=== PATIENT | male | born 1970 | race Caucasian/White ===

== ENCOUNTER 2019-04-24 14:15 | Inpatient (IN) | payer SELFPAY | END 2019-04-29 14:38 | disposition home or self-care (01) | LOC: FER 14:15 → J7W 21:11 ==

== ENCOUNTER 2019-06-01 18:07 | Emergency (ER) | payer SELFPAY ==
[2019-06-01] MEDS ORDERED: SODIUM CHLORIDE 1,000 ML IV STA (18:27)
[2019-06-01 18:29] VITALS: BP 112/71; PULSE 79; TEMP 98.3; BMI 26.6
--- NOTE | 2019-06-01 18:32 | PDOC ---
History of Present Illness - General Chief Complaint: Pain Stated Complaint: MID TO LEFT LOWER QUADRANT PAIN Time Seen by Provider: 06/01/19 18:14 History Source: Patient Exam Limitations: No Limitations - History of Present Illness Travel History: No Initial Comments: 06/01/19 18:27 48 y/o male with hx of kidney stone and recent diverticulitis with abscess presents to ER with abdominal pain and radiation to left testicle. No back pain , dysuria or hematuria noted. Pain started last night. never followed up with Surgeon, but states needs colonoscopy. No fever or chills. No N/V/d/C. Pain still present. No fall or trauma to the area. Timing/Duration: reports: constant, getting worse Quality: reports: moderate Abdominal Pain Onset Location: reports: suprapubic Pain Radiation: reports: groin. denies: no radiation Past History - Past Medical History Allergies/Adverse Reactions: Allergies Allergy/AdvReac Type Severity Reaction Status Date / Time oxycodone Allergy Unknown Nausea Verified 06/01/19 18:09 Home Medications: Ambulatory Orders NK [No Known Home Medication] 06/01/19 COPD: No Kidney Stones: Yes (SELF REPORTED) Psychiatric Problems: Yes (ANXIETY) - Surgical History Appendectomy: Yes (AGE 14) - Suicide/Smoking/Psychosocial Hx Smoking History: Never smoked Hx Alcohol Use: No Drug/Substance Use Hx: Yes (MARIJUANA DAILY, OCCASIONAL COCAINE) Substance Use Type: Marijuana Review of Systems - Review of Systems Able to Perform ROS?: Yes Is the patient limited O[place]i proficient: No Constitutional: No: Chills, Fever Respiratory: No: Cough, Shortness of Breath ABD/GI: No: Diarrhea, Nausea, Vomiting : No: Dysuria, Flank Pain Musculoskeletal: No: Back Pain All Other Systems: Reviewed and Negative *Physical Exam - Physical Exam General Appearance: Yes: Nourished, Appropriately Dressed. No: Apparent Distress HEENT: positive: EOMI, SPENCER, Normal ENT Inspection, Normal Voice, Pharynx Normal Neck: positive: Trachea midline, Normal Thyroid, Supple. negative: Tender, Rigid Respiratory/Chest: positive: Lungs Clear, Normal Breath Sounds. negative: Chest Tender, Respiratory Distress Cardiovascular: positive: Regular Rhythm, Regular Rate, S1, S2. negative: Edema , JVD, Murmur Vascular Pulses: Femoral (R): 4+, Femoral (L): 4+, Carotid (R): 4+, Carotid (L) : 4+, Dorsalis-Pedis (R): 4+, Doralis-Pedis (L): 4+ Gastrointestinal/Abdominal: positive: Normal Bowel Sounds, Tender (mild tenderness to suprapubic area and LLQ, no RLQ, RUQ or LUQ tenderness noted), Flat, Soft. negative: Organomegaly, Pulsatile Mass Lymphatic: negative: Adenopathy, Tenderness, Other Musculoskeletal: positive: Normal Inspection. negative: CVA Tenderness, CVA Tenderness (L) Extremity: positive: Normal Capillary Refill, Normal Inspection, Normal Range of Motion. negative: Tender Integumentary: positive: Normal Color, Dry, Warm Neurologic: positive: human resources technician II-XII NML intact, Fully Oriented, Alert, Normal Mood/ Affect, Normal Response, Motor Strength 5/5 Progress Note - Progress Note Progress Note: Patient with hx of kidney stone and diverticulitis IVF and labs pending. Will need CT abdomen UA negative for blood At 1900, case endorsed to Dr. Taylor. *DC/Admit/Observation/Transfer Diagnosis at time of Disposition: Abdominal pain Qualifiers: Abdominal location: lower abdomen, unspecified Qualified Code(s): R10.30 - Lower abdominal pain, unspecified - Discharge Dispostion Condition at time of disposition: Stable - Referrals - Patient Instructions - Post Discharge Activity
[2019-06-01 18:59] LABS: BASO % 0.4 % (0-2.0); EOS % 0.8 % (0-4.5); HEMATOCRIT 36.8 % (35.4-49); HEMOGLOBIN 12.6 GM/dl (11.7-16.9); LYMPH % 25.1 % (8-40); MCH 31.1 pg (25.7-33.7); MCHC 34.2 g/dl (32.0-35.9); MEAN CELL VOLUME 90.9 fl (80-96); MEAN PLT VOLUME 7.7 fl (7.5-11.1); MONO % 7.5 % (3.8-10.2); NEUT % 66.2 % (42.8-82.8); PLATELET COUNT 261 K/MM3 (134-434); RBC 4.05 M/mm3 (4.00-5.60); RDW 12.4 % (11.9-15.9); WHITE BLOOD COUNT 8.6 K/mm3 (4.0-10.8)
[2019-06-01 19:11] LABS: BILIRUBIN,TOTAL 0.3 mg/dl (0.2-1); CALCIUM 8.4 mg/dl (8.5-10); CREATININE 1.1 mg/dl (0.55-1.3); POTASSIUM 3.7 mmol/L (3.5-5.1); TOT PROT 6.9 g/dl (6.4-8.2)
--- NOTE | 2019-06-01 19:15 | PDOC ---
*Physical Exam - Vital Signs Last Vital Signs Temp Pulse Resp BP Pulse Ox 98.3 F 79 16 112/71 99 06/01/19 18:09 06/01/19 18:09 06/01/19 18:09 06/01/19 18:09 06/01/19 18:09 ED Treatment Course - LABORATORY CBC & Chemistry Diagram: 06/01/19 18:40 06/01/19 18:40 - ADDITIONAL ORDERS Additional order review: Laboratory Results 06/01/19 06/01/19 18:40 18:35 Sodium 139 Potassium 3.7 Chloride 102 Carbon Dioxide 29 Anion Gap 8 BUN 18.0 Creatinine 1.1 Est GFR (CKD-EPI)AfAm 92.81 Est GFR (CKD-EPI)NonAf 80.08 Random Glucose 100 Calcium 8.4 L Total Bilirubin 0.3 AST 15 ALT 14 Alkaline Phosphatase 51 Total Protein 6.9 Albumin 4.0 Urine Color Yellow Urine Appearance Clear Urine pH 7.0 D Urine Protein Negative Urine Glucose (UA) Negative Urine Ketones Negative Urine Blood Negative Urine Nitrite Negative Urine Bilirubin Negative Urine Urobilinogen 0.2 Ur Leukocyte Esterase Negative 06/01/19 18:40 RBC 4.05 MCV 90.9 MCHC 34.2 RDW 12.4 MPV 7.7 Neutrophils % 66.2 Lymphocytes % 25.1 D Monocytes % 7.5 Eosinophils % 0.8 Basophils % 0.4 D Progress Note - Progress Note Progress Note: Care of this patient received from Dr. Mcnulty. Abdominal/pelvic CT with IV contrast performed. Patient states that he feels more comfortable after IV hydration. Preliminary interpretation of CT by Imaging injection molding process technician: Moderate acute diverticulitis of the proximal sigmoid colon. No evidence for perforation or abscess at this time. Trace pelvic fluid. No evidence for small bowel obstruction or free air. No ureteral calculi or hydronephrosis. Other than 3 mm low attenuation right hepatic lesion (2 small to adequately characterize), no other significant abnormality seen. Results discussed with the patient. First dose of Levaquin 750 mg and Flagyl 500 mg will be given here in the emergency room. 7 day course of each antibiotic will be sent to his pharmacy. Importance of follow-up emphasized to the patient. He will be given Dr. Viveros' s referral information. He states that he will follow-up within the next week. He should return to the ER if he has worsening pain/develops vomiting or fever. *DC/Admit/Observation/Transfer Diagnosis at time of Disposition: Diverticulitis Abdominal pain Qualifiers: Abdominal location: lower abdomen, unspecified Qualified Code(s): R10.30 - Lower abdominal pain, unspecified - Discharge Dispostion Disposition: HOME Condition at time of disposition: Stable - Prescriptions Prescriptions: levoFLOXacin [Levaquin -] 750 mg PO DAILY #6 tablet metroNIDAZOLE [Flagyl -] 500 mg PO TID #20 tablet - Referrals Referrals: Brad Viveros MD [Staff Physician] - 1 week - Patient Instructions Printed Discharge Instructions: Diverticulitis Additional Instructions: Levaquin 750 mg daily for the next 6 days Flagyl 500 mg 3 times a day for the next 6 days Continue drinking plenty of water as discussed Light diet; advance diet as tolerated Return to ER if you have vomiting, more severe abdominal pain, high fever Follow-up with Dr. Viveros within the next week; call office tomorrow to arrange appointment - Post Discharge Activity
[2019-06-01] MEDS ORDERED: metroNIDAZOLE 500 MG TABLET PO ONE (21:21)
[2019-06-01] MEDS ORDERED: metroNIDAZOLE 250 MG TABLET ONE (21:28)
== END 2019-06-01 21:34 | disposition home or self-care (01) ==
LOC: FER 18:07
PROC: 3E0337Z Introduction of Electrolytic and Water Balance Substance into Peripheral Vein, Percutaneous Approach (ICD-10-PCS; principal; 2019-06-01)
DX: R10.30 Lower abdominal pain, unspecified (principal); F41.9 Anxiety disorder, unspecified
CPT/HCPCS: 36415; 74177-TC; 80053; 81003; 85025; 99283-25; J7030